=== PATIENT | male | born 1960 | race African-American/Black ===

== ENCOUNTER → 2017-03-16 | Outpatient (CLI) | payer MEDICARE, OTHER ==
[2016-01-07 18:08] VITALS: BP 105/68
[~2017-03-16] MED LIST: ATOR20TA58 PO; CYCL-331 PO; FLUO20TA11 PO; FURO-68 PO; HYDR-2680 PO; LISI-334 PO; MAGN400O7 PO; NAPR500T8 PO; PRED10TA2 PO; TRAM50TA PO; TRAZ-90 PO
[2017-03-16 15:33] LABS: BASO % 0 % (0-3); EOS # 0.4 x10^3/uL (0.0-0.7); EOS % 4 % (0-3); HEMATOCRIT 37.3 % (39.0-53.0); HEMOGLOBIN 12.5 g/dL (13.0-17.5); LYMPH # 1.4 x10^3/uL (1.0-4.8); LYMPH % 15 % (24-48); MEAN CORPUSCULAR HEMOGLOBIN 28 pg (25-35); MEAN CORPUSCULAR HGB CONC 34 g/dL (31-37); MEAN CORPUSCULAR VOLUME 84 fL (79-100); MONO # 0.7 x10^3/uL (0.0-1.1); MONO % 7 % (0-9); NEUT % 74 % (31-73); PLATELET COUNT 249 x10^3/uL (140-400); RED BLOOD COUNT 4.47 x10^6/uL (4.30-5.70); RED CELL DISTRIBUTION WIDTH 13.8 % (11.5-14.5); WHITE BLOOD COUNT 9.5 x10^3/uL (4.0-11.0)
[2017-03-16 15:39] LABS: BARBITURATES NEG (NEG); BENZODIAZEPINES NEG (NEG); CANNABINOIDS NEG (NEG); COCAINE NEG (NEG); METHADONE NEG (NEG); OPIATES POS (NEG); PHENCYCLIDINE NEG (NEG)
[2017-03-16 15:45] LABS: AMPHETAMINE/METHAMPHETAMINE NEG (NEG)
--- NOTE | 2017-03-16 15:54 | RAD ---
Pelvis with both hips, 03/16/2017: History: Hip pain Comparison is made to a study from 09/26/2012. Bilateral total hip prostheses have been placed. They appear to be in satisfactory positions. No fracture or dislocation is identified. There is a mildly prominent lucency along the margins of the superior aspect of the femoral component of the left hip prosthesis. This raises the possibility of loosening or infection. There is a given history of prior infection of the hip prosthesis which may be producing this appearance. No pelvic abnormality is detected. IMPRESSION: 1. Bilateral total hip prostheses are in place in satisfactory positions. 2. Mildly prominent lucency related to the upper portion of the femoral component of the left hip prosthesis as described above.
[2017-03-16 16:42] LABS: SEDIMENTATION RATE 58 (0-15)
== END | disposition home or self-care (01) ==
LOC: LAB 14:08
PROVIDERS: ATTEND Family Medicine
DX: M25.551 Pain in right hip (principal); M25.552 Pain in left hip; Z96.643 Presence of artificial hip joint, bilateral
CPT/HCPCS: 36415; 73521; 85027; 85651; G0481

== ENCOUNTER 2021-04-11 22:34 | Emergency (ER) | payer MEDICARE, OTHER ==
[~2021-04-11] VITALS: Ht 327.7 cm; Wt 100.0 kg
[~2021-04-11 22:34] MED LIST changes: -LISI-334 PO; +LISI20TA18 PO; +TRAZ-125 PO; -TRAZ-90 PO
[2021-04-11 22:47] VITALS: BP 150/88
== END 2021-04-11 23:20 | disposition left against medical advice (07) ==
LOC: ER 22:34
DX: S91.302A Unspecified open wound, left foot, initial encounter (principal); Z53.21 Procedure and treatment not carried out due to patient leaving prior to being seen by health care provider; W22.8XXA Striking against or struck by other objects, initial encounter; Y93.89 Activity, other specified; Y92.89 Other specified places as the place of occurrence of the external cause; Y99.8 Other external cause status

== ENCOUNTER 2021-07-25 12:12 | Emergency (ER) | payer MEDICARE, OTHER ==
[~2021-07-25] VITALS: Ht 175.3 cm; Wt 107.2 kg
[2021-07-25 12:12] VITALS: BP 124/86
--- NOTE | 2021-07-25 13:15 | PHYS DOC ---
Past History Past Medical History: No Pertinent History, Hypertension (KEVIN CASTANO APRN) Past Surgical History: Other (KEVIN CASTANO APRN) Alcohol Use: None Drug Use: None (KEVIN CASTANO APRN) General Adult EDM: Chief Complaint: DRUG SCREEN HPI: HPI: Patient is a 61-year-old male who presents to the ER for drug screening. Patient states that he thinks someone is sneaking into his house and drinking his smoothies every morning. He states that he went to [place] on Sunday and made himself a smoothie and after that felt funny like he had been drugged patient states "I am not trying to brag but been to senior living before and i know how it feels like to get high". Patient states that when he returned from [place], he noticed that there was more meat missing from his pain that he had been cooking than when he left. Patient wants to be tested to make sure that there is no drugs in his system. Patient denies fevers, cough, chest pain, shortness of breath, dizziness. (KEVIN CASTANO APRN) Review of Systems: Review of Systems: 14 body systems of the review of systems have been reviewed. See HPI for pertinent positive and negative responses, otherwise all other systems are negative, nonpertinent or noncontributory (KEVIN CASTANO APRN) Allergies: Allergies: Allergies Coded Allergies Type Severity Reaction Last Updated Verified No Known Drug Allergies 07/01/15 No (KEVIN CASTANO APRN) Physical Exam: PE: Constitutional: Well developed, well nourished, no acute distress, non-toxic appearance. [] HENT: Normocephalic, atraumatic Eyes: PERRL, EOMI, conjunctiva normal, no discharge. [] Neck: Normal range of motion, no stridor Cardiovascular:Heart rate regular rhythm, no murmur [] Lungs & Thorax: Bilateral breath sounds clear to auscultation [] Abdomen: Bowel sounds normal, soft, no tenderness, no masses, no pulsatile masses. [] Skin: Warm, dry, no erythema, no rash. [] Back: Normal range of motion Extremities: No tenderness, no cyanosis, no clubbing, ROM intact, no edema. [] Neurologic: Alert and oriented X 3, normal motor function, normal sensory function, no focal deficits noted. [] Psychologic: Affect normal, judgement normal, mood normal. [] (KEVIN CASTANO MUD ANALYSIS OPERATOR) Current Patient Data: Labs: Laboratory Tests Test 07/25/21 13:12 07/25/21 13:25 White Blood Count 9.2 x10^3/uL Red Blood Count 4.64 x10^6/uL Hemoglobin 13.3 g/dL Hematocrit 40.9 % Mean Corpuscular Volume 88 fL Mean Corpuscular Hemoglobin 29 pg Mean Corpuscular Hemoglobin Concent 33 g/dL Red Cell Distribution Width 13.8 % Platelet Count 196 x10^3/uL Neutrophils (%) (Auto) 77 % Lymphocytes (%) (Auto) 12 % Monocytes (%) (Auto) 7 % Eosinophils (%) (Auto) 3 % Basophils (%) (Auto) 1 % Neutrophils # (Auto) 7.1 x10^3uL Lymphocytes # (Auto) 1.1 x10^3/uL Monocytes # (Auto) 0.6 x10^3/uL Eosinophils # (Auto) 0.3 x10^3/uL Basophils # (Auto) 0.1 x10^3/uL Sodium Level 134 mmol/L Potassium Level 4.4 mmol/L Chloride Level 100 mmol/L Carbon Dioxide Level 26 mmol/L Anion Gap 8 Blood Urea Nitrogen 17 mg/dL Creatinine 0.6 mg/dL Estimated GFR (Cockcroft-Gault) 164.7 BUN/Creatinine Ratio 28 Glucose Level 101 mg/dL Calcium Level 8.5 mg/dL Total Bilirubin 0.3 mg/dL Aspartate Amino Transf (AST/SGOT) 25 U/L Alanine Aminotransferase (ALT/SGPT) 36 U/L Alkaline Phosphatase 60 U/L Total Protein 7.3 g/dL Albumin 3.4 g/dL Albumin/Globulin Ratio 0.9 Urine Collection Type Unknown Urine Color Yellow Urine Clarity Clear Urine pH 8.0 Urine Specific [place] 1.015 Urine Protein Neg Urine Glucose (UA) Neg mg/dL Urine Ketones (Stick) Neg mg/dL Urine Blood Neg Urine Nitrite Neg Urine Bilirubin Neg Urine Urobilinogen Dipstick 1.0 mg/dL Urine Leukocyte Esterase Neg Urine RBC 0 /HPF Urine WBC 1-4 /HPF Urine Squamous Epithelial Cells Few /LPF Urine Bacteria 0 /HPF Urine Opiates Screen Pos Urine Methadone Screen Neg Urine Barbiturates Neg Urine Phencyclidine Screen Neg Urine Amphetamine/Methamphetamine Neg Urine Benzodiazepines Screen Neg Urine Cocaine Screen Neg Urine Cannabinoids Screen Neg Urine Ethyl Alcohol Neg (KEVIN CASTANO APRN) EKG: EKG: [] (KEVIN CASTANO APRN) Radiology/Procedures: Radiology/Procedures: [] (KEVIN CASTANO APRN) Heart Score: C/O Chest Pain: No Risk Factors: Risk Factors: DM, Current or recent (<one month) smoker, HTN, HLP, family history of CAD, obesity. Risk Scores: Score 0 - 3: 2.5% MACE over next 6 weeks - Discharge Home Score 4 - 6: 20.3% MACE over next 6 weeks - Admit for Clinical Observation Score 7 - 10: 72.7% MACE over next 6 weeks - Early Invasive Strategies (KEVIN CASTANO APRN) Course & Med Decision Making: Course & Med Decision Making Pertinent Labs and Imaging studies reviewed. (See chart for details) [] Patient is a 61-year-old male being seen in the ER for a drug screen after thinking that someone is drinking his morning smoothies to take his food. Lab work performed and urine drug screen performed in the ER. Work in the ER is unremarkable, patient was positive for opiates in his urine drug screen and he states that he does take opiates at home. Patient vies to follow-up with his primary care provider. I discussed with patient all findings and diagnostic testing as well as the need to follow-up with PCP for further evaluation and treatment or return to the ER if any new or worsening symptoms. Strict return precautions were also discussed at length. Patient voiced understanding and agreement with the plan. Patient is hemodynamically stable at the time of disposition. (KEVIN CASTANO APRN) Dragon Disclaimer: Dragon Disclaimer: This electronic medical record was generated, in whole or in part, using a voice recognition dictation system. (KEVIN CASTANO APRN) Attending Co-Sign The patient was seen and interviewed as well as examined at the bedside. The chart was reviewed. The case was discussed. Agree with the plan of care. (BETH DOTSON DO) Departure Departure: Impression: Primary Impression: Encounter for drug screening Disposition: HOME / SELF CARE / HOMELESS Condition: GOOD Referrals: BELLE MCKEON MD (PCP) Patient Instructions: Drug Testing Additional Instructions: You were seen in the ER today for drug screen. Your lab work was unremarkable. Your urine drug screen was positive for opiates but he stated that you do take this at home. Please follow-up with your primary care provider. If you have any new or worsening concerns he can return to the ER. EMERGENCY DEPARTMENT GENERAL DISCHARGE INSTRUCTIONS Thank you for coming to [facility] (ED) today and trusting us with you care. We trust that you had a positivie experience in our Emergency Department. If you wish to speak to the department management, you may call the director at [phone]. YOUR FOLLOW UP INSTRUCTIONS ARE FOLLOWS: 1. Do you have a private Doctor? If you do not have a private doctor, please ask for a resource list of physicians or clinics that may be able to assist you with follow up care. 2. The Emergency Physician has interpreted your x-rays. The X-Ray specialist will also review them. If there is a change in the findings, you will be notified in 48 hours when at all possible. 3. A lab test or culture has been done, your results will be reviewed and you will be notified if you need a change in treatment. ADDITIONAL INSTRUCTIONS AND INFORMATION: 1. Your care today has been supervised by a physician who is specially trained in emergency care. Many problems require more than one evaluation for a complete diagnosis and treatment. We recommend that you schedule your follow up appointment as recommended to ensure complete treatment of you illness or injury. If you are unable to obtain follow up care and continue to have a problem, or if your condition worsens, we recommend that you return to the ED. 2. We are not able to safely determine your condition over the phone nor are we able to give sound medical advice over the phone. For these safety reasons, if you call for medical advice we will ask you to come to the ED for further evaluation. 3. If you have any questions regarding these discharge instructions please call the ED at [phone]. SAFETY INFORMATION: In the interest of safety, wellness, and injury prevention; we encourage you to wear your sealbelt, if you smoke; quite smoking, and we encourage family to use a protective helmet for bicycling and other sporting events that present an increased risk for head injury. IF YOUR SYMPTOMS WORSEN OR NEW SYMPTOMS DEVELOP, OR YOU HAVE CONCERNS ABOUT YOUR CONDITION; OR IF YOUR CONDITION WORSENS WHILE YOU ARE WAITING FOR YOUR FOLLOW UP APPOINTMENT; EITHER CONTACT YOUR PRIMARY CARE DOCTOR, THE PHYSICIAN WHOSE NAME AND NUMBER YOU WERE GIVEN, OR RETURN TO THE ED IMMEDIATELY. KEVIN CASTANO APRN Jul 25, 2021 13:15 BETH DOTSON DO Jul 25, 2021 17:17
[2021-07-25 13:29] LABS: BASO # 0.1 x10^3/uL (0.0-0.2); BASO % 1 % (0-3); EOS # 0.3 x10^3/uL (0.0-0.7); EOS % 3 % (0-3); HEMATOCRIT 40.9 % (39.0-53.0); HEMOGLOBIN 13.3 g/dL (13.0-17.5); LYMPH # 1.1 x10^3/uL (1.0-4.8); LYMPH % 12 % (24-48); MEAN CORPUSCULAR HEMOGLOBIN 29 pg (25-35); MEAN CORPUSCULAR HGB CONC 33 g/dL (31-37); MEAN CORPUSCULAR VOLUME 88 fL (79-100); MONO # 0.6 x10^3/uL (0.0-1.1); MONO % 7 % (0-9); NEUT # 7.1 x10^3uL (1.8-7.7); NEUT % 77 % (31-73); PLATELET COUNT 196 x10^3/uL (140-400); RED BLOOD COUNT 4.64 x10^6/uL (4.30-5.70); RED CELL DISTRIBUTION WIDTH 13.8 % (11.5-14.5); WHITE BLOOD COUNT 9.2 x10^3/uL (4.0-11.0)
[2021-07-25 13:40] LABS: CALCIUM 8.5 mg/dL (8.5-10.1); CREATININE 0.6 mg/dL (0.7-1.3); GFR 164.7; POTASSIUM 4.4 mmol/L (3.5-5.1)
[2021-07-25 13:46] LABS: ALBUMIN 3.4 g/dL (3.4-5.0); ALBUMIN/GLOBULIN RATIO 0.9 (1.0-1.7); TOTAL BILIRUBIN 0.3 mg/dL (0.2-1.0); TOTAL PROTEIN 7.3 g/dL (6.4-8.2)
[2021-07-25 14:08] LABS: BARBITURATES NEG (NEG); BENZODIAZEPINES NEG (NEG); CANNABINOIDS NEG (NEG); COCAINE NEG (NEG); METHADONE NEG (NEG); OPIATES POS (NEG); PHENCYCLIDINE NEG (NEG)
[2021-07-25 14:10] LABS: AMPHETAMINE/METHAMPHETAMINE NEG (NEG)
[2021-07-25 14:17] LABS: BACTERIA,URINE 0 /HPF (0-FEW); BILIRUBIN,URINE NEG (NEG); CLARITY,URINE CLEAR; COLOR,URINE YELLOW; GLUCOSE,URINE NEG (NEG); NITRITE,URINE NEG (NEG); RBC,URINE 0 /HPF (0-2); SQUAMOUS EPITHELIAL CELL,UR FEW /LPF
== END 2021-07-25 14:47 | disposition home or self-care (01) ==
LOC: ER 12:12
DX: Z02.83 Encounter for blood-alcohol and blood-drug test (principal); I10 Essential (primary) hypertension
CPT/HCPCS: 36415; 80053; 80307; 81001; 85025; 99283

== ENCOUNTER 2021-11-15 00:04 | Emergency (ER) | payer MEDICARE, OTHER ==
[~2021-11-15 00:04] MED LIST changes: -CYCL-331 PO; +CYCL10TA19 PO
--- NOTE | 2021-11-15 00:16 | PHYS DOC ---
Past History Past Medical History: No Pertinent History, Hypertension Past Surgical History: Other Alcohol Use: None Drug Use: None General Adult HPI: HPI: Patient is a 61 year old male who presents with above hx and complaints cough, dyspnea. Pt. left after check in. Did not see physician. Review of Systems: Review of Systems: Left before eval. Family History: Family History: [place] before eal. Current Medications: Current Meds: See Nursing Allergies: Allergies: Allergies Coded Allergies Type Severity Reaction Last Updated Verified No Known Drug Allergies 07/01/15 No Physical Exam: PE: Left before eval. EKG: EKG: Left before eval. [] Radiology/Procedures: Radiology/Procedures: Left before eval. [] Heart Score: C/O Chest Pain: N/A Risk Factors: Risk Factors: DM, Current or recent (<one month) smoker, HTN, HLP, family history of CAD, obesity. Risk Scores: Score 0 - 3: 2.5% MACE over next 6 weeks - Discharge Home Score 4 - 6: 20.3% MACE over next 6 weeks - Admit for Clinical Observation Score 7 - 10: 72.7% MACE over next 6 weeks - Early Invasive Strategies Course & Med Decision Making: Course & Med Decision Making Pertinent Labs and Imaging studies reviewed. (See chart for details) Left before eval. right after check in. [] Dragon Disclaimer: Dragon Disclaimer: This electronic medical record was generated, in whole or in part, using a voice recognition dictation system. Departure Departure: Referrals: BELLE MCKEON MD (PCP) [place] Disclaimer This chart was dictated in whole or in part using Voice Recognition software in a busy, high-work load, and often noisy Emergency Department environment. It may contain unintended and wholly unrecognized errors or omissions. YANNA ROMERO MD Nov 15, 2021 00:15
[2021-11-15] MEDS ORDERED: ALBUTEROL SULFATE 8GM INHALER. INH ONE (01:00)
== END 2021-11-15 00:10 | disposition left against medical advice (07) ==
LOC: ER 00:04
DX: R05.9 Cough, unspecified (principal); R06.00 Dyspnea, unspecified; I10 Essential (primary) hypertension; Z53.21 Procedure and treatment not carried out due to patient leaving prior to being seen by health care provider

== ENCOUNTER → 2021-11-17 | Outpatient (CLI) | payer MEDICARE, OTHER ==
--- NOTE | 2021-11-18 00:45 | RAD ---
Two-view chest dated 11/18/2021 12:42 AM Comparison: None CLINICAL INDICATION: Cough FINDINGS: PA and lateral views obtained. Heart and mediastinal contours within normal limits. Lungs are clear. No consolidation or pleural effusion. No pneumothorax. IMPRESSION: No acute radiographic abnormality. Electronically signed by: Arnulfo Koenig MD (11/18/2021 12:42 AM) [facility]
== END ==
LOC: RAD 17:07
PROVIDERS: ATTEND Family Medicine
DX: R05.1 Acute cough (principal)
CPT/HCPCS: 71046